=== PATIENT | male | born 1970 | race Caucasian/White ===

== ENCOUNTER 2018-02-26 22:32 | Emergency (ER) | payer BC ==
[~2018-02-26] VITALS: Ht 185.4 cm; Wt 102.1 kg
[2018-02-26 23:56] LABS: AMP/METHAMP Negative (Negative); BARBITURATES Negative (Negative); BENZODIAZEPINES Negative (Negative); COCAINE Negative (Negative); METHADONE Negative (Negative); OPIATES Negative (Negative); PCP Negative (Negative)
[2018-02-27] MEDS ORDERED: ZOLOFT25 MG PO (00:21)
[2018-02-27] MEDS ORDERED: ALLEGRA-D 24 H1 EACH PO (00:22)
[2018-02-27 00:52] VITALS: BP 128/83
== END 2018-02-27 00:57 | disposition home or self-care (01) ==
LOC: ER 22:32
PROVIDERS: Student in an Organized Health Care Education/Training Program
DX: T40.2X1A Poisoning by other opioids, accidental (unintentional), initial encounter (principal); Z88.8 Allergy status to other drugs, medicaments and biological substances; Z91.018 Allergy to other foods; Y92.89 Other specified places as the place of occurrence of the external cause

== ENCOUNTER → 2020-02-29 | Outpatient (CLI) | payer BC ==
[~2020-02-29] MED LIST: ALLEGRA-D 24 H1 EACH PO; ZOLOFT25 MG PO
== END ==
LOC: LAB 12:40
PROVIDERS: ATTEND Nurse Practitioner
DX: Z20.822 Contact with and (suspected) exposure to COVID-19 (principal)

== ENCOUNTER → 2020-04-17 | Outpatient (CLI) | payer OTHER | LOC: CAT 07:45 | PROVIDERS: ATTEND Family Medicine | DX: Z13.6 Encounter for screening for cardiovascular disorders (principal); I25.10 Atherosclerotic heart disease of native coronary artery without angina pectoris; E78.00 Pure hypercholesterolemia, unspecified ==